=== PATIENT | female | born 1955 | race Caucasian/White ===

== ENCOUNTER 2017-03-06 07:13 | Inpatient (IN) ==
[2017-03-03 14:45] LABS: Basophils # (Auto) 0 K/mcL (0.0-0.3); Basophils % (Auto) 0.4 % (0.0-2.0); Eosinophils # (Auto) 0.2 K/mcL (0.0-0.7); Eosinophils % (Auto) 2.6 % (0.0-7.0); Granulocytes % (Auto) 57.4 % (38.0-78.0); Lymphocytes # (Auto) 2.1 K/mcL (1.5-4.8); Lymphocytes % (Auto) 32.4 % (15.5-49.0); Mean Cell Volume 82.7 fL (80.0-100.0); Mean Corpuscular HGB Conc 34.6 g/dL (31.0-36.0); Mean Corpuscular Hemoglobin 28.7 pg (26.0-34.0); Monocytes # (Auto) 0.5 K/mcL (0.1-0.9); Monocytes % (Auto) 7.2 % (1.0-12.0); Platelet Count 302 K/mcL (140-440); RBC 4.39 M/mcL (4.00-5.20); Red Cell Distribution Width 14.1 % (11.5-14.5)
[2017-03-03 15:00] LABS: Blood Urea Nitrogen 13 mg/dl (8-23)
[2017-03-03 16:12] LABS: Appearance,Urine CLEAR; Bilirubin,Urine NEG (NEG); Color,Urine YELLOW; Glucose,Urine (UA) NEGATIVE (NEG); Leukocyte Esterase,Urine NEG /uL (NEG); Nitrate,Urine NEG (NEG); Protein,Urine NEG (NEG); Specific Gravity,Urine 1.012 (1.000-1.035); Urine Blood NEG mg/dL (<0.03); Urobilinogen,Urine NEG (NEG)
[~2017-03-06 07:13] MED LIST: ACETAMINOPHEN 500 MG TABLET PO SCH; KETOROLAC 30 MG, ROPIVACAINE HCL/PF 49.5 ML, EPINEPHrine 0.5 MG, 0.9 % SODIUM CHLORIDE ... IJ ONE; PREGABALIN 75 MG CAPSULE PO SCH; ceFAZolin 1 GM VIAL IV SCH; oxyCODONE 10 MG TAB.ER.12H PO SCH
[2017-03-06] MEDS ORDERED: ONDANSETRON 4 MG/2 ML VIAL IV ONE (10:45)
[2017-03-06] MEDS ORDERED: DEXAMETHASONE 10 MG/ML VIAL IV ONE (10:45)
[2017-03-06] MEDS ORDERED: LIDOCAINE HCL/PF 100 MG/5 ML SYRINGE IV ONE (10:45)
[2017-03-06] MEDS ORDERED: ePHEDrine 50 MG/ML AMPUL IV ONE (10:45)
[2017-03-06] MEDS ORDERED: GLYCOPYRROLATE 0.2 MG/ML VIAL IV ONE (10:45)
[2017-03-06] MEDS ORDERED: HETASTARCH 6% 500 ML BAG IV ONE (10:45)
[2017-03-06] MEDS ORDERED: PROPOFOL 200 MG/20 ML VIAL IV ONE (10:45)
[2017-03-06] MEDS ORDERED: PHENYLEPHRINE 10 MG/ML VIAL IV ONE (10:45)
[2017-03-06] MEDS ORDERED: ROPIVACAINE HCL/PF 30 ML VIAL IJ ONE (10:45)
[2017-03-06] MEDS ORDERED: MIDAZOLAM 5 MG/5 ML VIAL IV ONE (10:45)
[2017-03-06] MEDS ORDERED: TRANEXAMIC ACID 1,000 MG/10 ML VIAL IV ONE ×2 (10:45→12:19)
[2017-03-06] MEDS ORDERED: GENTAMICIN SULFATE 800 MG/20 ML VIAL IR ONE (11:20)
[2017-03-06] MEDS ORDERED: diphenhydrAMINE 50 MG/ML VIAL IV PRN (11:57)
[2017-03-06] MEDS ORDERED: IPRATROPIUM/ALBUTEROL 3 ML AMPUL.NEB NEB PRN (11:57)
[2017-03-06] MEDS ORDERED: BENZOCAINE/MENTHOL 1 LOZENGE PO PRN ×2 (11:57→12:19)
[2017-03-06] MEDS ORDERED: METHOCARBAMOL 1,000 MG/10 ML VIAL IV PRN (11:57)
[2017-03-06] MEDS ORDERED: PROMETHAZINE 25 MG/ML VIAL IV PRN (11:57)
[2017-03-06] MEDS ORDERED: ONDANSETRON 4 MG/2 ML VIAL IV PRN ×2 (11:57→12:19)
[2017-03-06] MEDS ORDERED: FLUMAZENIL 0.1 MG/ML ML IV PRN (11:57)
[2017-03-06] MEDS ORDERED: fentaNYL 100 MCG/2 ML VIAL IV PRN (11:57)
[2017-03-06] MEDS ORDERED: METOCLOPRAMIDE 10 MG/2 ML VIAL IV PRN (11:57)
[2017-03-06] MEDS ORDERED: MEPERIDINE 50 MG/ML SYRINGE IM PRN (11:57)
[2017-03-06] MEDS ORDERED: LACTATED RINGERS 250 ML IV PRN (11:57)
[2017-03-06] MEDS ORDERED: ePHEDrine 50 MG/ML AMPUL IV PRN (11:57)
[2017-03-06] MEDS ORDERED: NALOXONE HCL 0.4 MG/ML VIAL IV PRN (11:57)
[2017-03-06] MEDS ORDERED: PROMETHAZINE 25 MG/ML VIAL IM PRN (11:57)
[2017-03-06] MEDS ORDERED: MEPERIDINE 25 MG/ML SYRINGE IV PRN (11:57)
[2017-03-06] MEDS ORDERED: LACTATED RINGERS 1,000 ML IV SCH (12:00)
[2017-03-06] MEDS ORDERED: FLEETS ADULT ENEMA PR PRN (12:19)
[2017-03-06] MEDS ORDERED: POLYETHYLENE GLYCOL 3350 17 GM PACKET PO PRN (12:19)
[2017-03-06] MEDS ORDERED: TEMAZEPAM 15 MG CAPSULE PO PRN (12:19)
[2017-03-06] MEDS ORDERED: BISACODYL 10 MG SUPP.RECT PR PRN (12:19)
[2017-03-06] MEDS ORDERED: ACETAMINOPHEN 325 MG TABLET PO PRN (12:19)
--- NOTE | 2017-03-06 12:19 | Brief Operative Note ---
Date of procedure: 03/06/17 Pre-op diagnosis: right knee severe djd Post-op diagnosis: same Procedure: right knee tka with colette robot Grafts/Implants: Yes Anesthesia: GETA Findings: djd in all three compartments Surgeon: Grant Gaming Job Setter Honing: Nathen Cottrell Estimated blood loss (cc): 20 Tourniquet Time (Minutes): 60 Specimens Removed/Pathology: none sent Condition: stable Disposition: PACU
[2017-03-06] MEDS ORDERED: DICYCLOMINE 10 MG CAPSULE PO PRN (12:26)
[2017-03-06] MEDS ORDERED: IPRATROPIUM BROMIDE 1 PUFF INHALER INH PRN (12:26)
[2017-03-06] MEDS ORDERED: HYDROcodone/APAP 5/325MG TABLET PO PRN (12:26)
[2017-03-06] MEDS ORDERED: BENZONATATE 100 MG CAPSULE PO PRN (12:26)
[2017-03-06] MEDS ORDERED: METHOCARBAMOL 500 MG TABLET PO PRN (12:26)
[2017-03-06] MEDS: 0.45 % SODIUM CHLORIDE 1,000 ML IV SCH ×2 (13:22→22:22)
--- NOTE | 2017-03-06 13:53 | Discharge Summary ---
Ortho Discharge - TKA - Patient Instructions Diet: Regular Diet Activity: activity as tolerated, weight bearing as tolerated Total Knee Protocol: For Total Knee: Start ROM LEVI with stationary bike or rocking chair. Work on gaining full extension of knee. Posterior dislocation precautions provided. Hip abductor strengthening and gait training instructions provided. Apply Cryocuff as instructed. Dressing Care: Aquacel Ag - leave on for 5 days - Follow Up Plan Follow Up Appointments: Grant Gaming MD [Physician] - 03/19/17 8:50 am Disposition: Home, Self-Care Prognosis: Good Rehab Potential: Good I certify that the patient requires SNF services: No Overall status at discharge: patient is progressing back to baseline - Orders For Discharge Additional Discharge Orders: Physical Therapy at Discharge - TKA Location: Determined By Patient Toilet Riser Discharge Order Location: Determined By Patient Walker Location: Determined By Patient
--- NOTE | 2017-03-06 13:57 | XRay Report ---
CLINICAL INFORMATION: Reason for Exam:Post-Op Total Knee COMPARISON: Preoperative film 11/13/2016 FINDINGS: Total knee prostheses is anatomically aligned. No osseous abnormality. Soft tissue swelling seen as expected IMPRESSION: Negative Interpreted and Authenticated by: Werner Rojas 03/06/17
[2017-03-06] MEDS: 0.9 % SODIUM CHLORIDE 10 ML SYRINGE IV SCH ×2 (14:52→21:23)
[2017-03-06] MEDS: KETOROLAC 15 MG/ML VIAL IV SCH ×2 (17:55→23:25)
[2017-03-06] MEDS: ceFAZolin 1 GM VIAL IV SCH (19:07)
[2017-03-06] MEDS: oxyCODONE/APAP 5/325MG TABLET PO PRN ×2 (19:13→23:26)
[2017-03-06] MEDS: QUEtiapine 25 MG TABLET PO SCH (20:36)
[2017-03-06] MEDS: PREGABALIN 75 MG CAPSULE PO SCH (20:36)
[2017-03-06] MEDS: CELECOXIB 200 MG CAPSULE PO SCH (20:36)
[2017-03-06] MEDS: DOCUSATE SODIUM 100 MG CAPSULE PO SCH (20:36)
[2017-03-06] MEDS: MEMANTINE 10 MG TABLET PO SCH (20:36)
[2017-03-06] MEDS: SENNOSIDES 1 TABLET PO SCH (20:36)
[2017-03-06] MEDS: DULoxetine 30 MG CAPSULE PO SCH (20:37)
[2017-03-06] MEDS: ASPIRIN 325 MG ENTERIC COATED TABLET PO SCH (20:41)
[2017-03-06] MEDS: SIMVASTATIN 20 MG TABLET PO SCH (21:33)
[2017-03-07] MEDS: ceFAZolin 1 GM VIAL IV SCH (02:11)
[2017-03-07] MEDS: oxyCODONE/APAP 5/325MG TABLET PO PRN ×2 (03:34→07:45)
[2017-03-07] MEDS: KETOROLAC 15 MG/ML VIAL IV SCH ×3 (05:15→18:08)
[2017-03-07] MEDS: 0.9 % SODIUM CHLORIDE 10 ML SYRINGE IV SCH ×3 (05:15→22:56)
[2017-03-07] MEDS: OMEPRAZOLE 20 MG CAPSULE PO SCH ×2 (06:41→07:29)
[2017-03-07] MEDS: LEVOTHYROXINE 88 MCG TABLET PO SCH (07:29)
[2017-03-07] MEDS: POTASSIUM CHLORIDE 20 MEQ TABLET PO SCH (07:45)
[2017-03-07] MEDS: metFORMIN 500 MG TAB.XL.24H PO SCH (07:45)
[2017-03-07] MEDS: 0.45 % SODIUM CHLORIDE 1,000 ML IV SCH ×2 (08:50→22:58)
[2017-03-07] MEDS ORDERED: diphenhydrAMINE 25 MG CAPSULE PO ONE (09:23)
[2017-03-07] MEDS: ASPIRIN 325 MG ENTERIC COATED TABLET PO SCH ×2 (09:43→21:33)
[2017-03-07] MEDS: MEMANTINE 10 MG TABLET PO SCH ×2 (09:43→21:33)
[2017-03-07] MEDS: PREGABALIN 75 MG CAPSULE PO SCH ×2 (09:43→21:33)
[2017-03-07] MEDS: LOSARTAN 25 MG TABLET PO SCH (09:43)
[2017-03-07] MEDS: VITAMIN B COMPLEX 1 CAPSULE PO SCH (09:43)
[2017-03-07] MEDS: HYDROCHLOROTHIAZIDE 25 MG TABLET PO SCH (09:43)
[2017-03-07] MEDS: CELECOXIB 200 MG CAPSULE PO SCH ×2 (09:44→21:33)
[2017-03-07] MEDS: DOCUSATE SODIUM 100 MG CAPSULE PO SCH ×2 (09:44→21:33)
[2017-03-07] MEDS: FLUTICASONE PROPIONATE SPRAY.NAS NS SCH (09:45)
[2017-03-07] MEDS: SELENIUM 100 MCG PO SCH (09:46)
--- NOTE | 2017-03-07 09:59 | Orthopedic Progress Note ---
Subjective Patient information: Note initiated : 03/07/17 at 9:57 am Service Date, if different from initiated Date: [] Patient: Ayah Coles 61 y/o F admitted on 03/06/17 for Right Medial Ole Partial Knee. Chief Complaint: [] Interval history: Patient is in quite a bit of pain this morning. She would like to try to increase pain medicine and if this works possibly go home today. She required IM morphine overnight for pain. She denies any acute symptoms such as LOPEZ, SOB, CP, numbness/tingling, or any other acute symptoms. Objective Vital signs: Vital Signs Temp Pulse Pulse Resp BP Pulse Ox 03/07/17 06:55 98.4 F 16 118/62 93 03/07/17 04:00 98.0 F 72 20 134/63 97 03/06/17 23:45 98.4 F 90 18 109/55 94 03/06/17 19:45 94 03/06/17 19:42 97.0 F 90 18 138/64 94 03/06/17 16:20 99 03/06/17 15:40 178/76 100 03/06/17 15:10 177/60 99 03/06/17 14:40 194/81 100 03/06/17 14:25 183/79 100 03/06/17 14:10 100 03/06/17 13:55 97.3 F 16 178/80 93 03/06/17 13:34 65 14 182/80 99 03/06/17 13:20 98.4 F 67 13 176/78 98 03/06/17 13:05 69 13 166/72 98 03/06/17 12:48 98.3 F 73 13 163/73 92 Intake and Output 03/06/17 03/07/17 03/07/17 21:59 05:59 13:59 Intake Total 1540 / 1540 2540 / 2540 240 / 240 Output Total 1400 / 1400 600 / 600 275 / 275 Balance 140 / 140 1940 / 1940 -35 / -35 Intake: IV 900 / 900 Sodium Chloride 0.45% 1, 900 / 900 000 ml @ 100 mls/hr IV . Q10H [facility] Rx#:[id number] Oral 1540 / 1540 1640 / 1640 240 / 240 Output: Urine Catheter Amount 1000 / 1000 Void Amount 400 / 400 600 / 600 275 / 275 Other: Meal Dinner sandwich & fruit cup Breakfast Percent of Meal Consumed 100% 100% 100% Feeding Ability Independent # Voids 1 Weight 180 lb 14.4 oz Intake & Output: Intake & Output 03/06/17 03/07/17 03/07/17 21:59 05:59 13:59 Intake Total 1540 / 1540 2540 / 2540 240 / 240 Output Total 1400 / 1400 600 / 600 275 / 275 Balance 140 / 140 1940 / 1940 -35 / -35 Weight 180 lb 14.4 oz Intake: IV 900 / 900 Sodium Chloride 0.45% 1, 900 / 900 000 ml @ 100 mls/hr IV . Q10H [facility] Rx#:[id number] Oral 1540 / 1540 1640 / 1640 240 / 240 Output: Urine Catheter Amount 1000 / 1000 Void Amount 400 / 400 600 / 600 275 / 275 Other: Meal Dinner sandwich & fruit cup Breakfast Percent of Meal Consumed 100% 100% 100% Feeding Ability Independent # Voids 1 Incision: Yes healing Dressing: Yes clean, Yes dry, Yes intact Weight bearing status: as tolerated Extremities exam IM: Yes Foot pink and warm, Yes neurovascular intact - Labs CBC & BMP: 03/07/17 05:23 03/03/17 13:23 Labs: Orthopedic Labs 03/03/17 13:23 PT 13.1 INR 1.0 APTT 30 03/07/17 03/03/17 05:23 13:23 Hgb 12.6 Hct 26.8 L 36.3 Assessment and Plan (1) Status post total right knee replacement Patient has a good amount of pain. She is doing well and walking but unable to control her pain on oral medications. I will switch her to oxycodone 10 mg 1-2 tabs every 4-6 hours prn pain and if this works she willl go home today and otherwise be discharged tomorrow. Status: Acute
[2017-03-07] MEDS ORDERED: diphenhydrAMINE 25 MG CAPSULE PO PRN (11:30)
[2017-03-07] MEDS: oxyCODONE/APAP 10/325MG TABLET PO PRN ×2 (11:51→18:09)
[2017-03-07] MEDS: MAGNESIUM HYDROXIDE 30 ML ORAL.SUSP PO PRN ×2 (13:41→19:13)
[2017-03-07] MEDS: SENNOSIDES 1 TABLET PO SCH (21:32)
[2017-03-07] MEDS: SIMVASTATIN 20 MG TABLET PO SCH (21:33)
[2017-03-07] MEDS: DULoxetine 30 MG CAPSULE PO SCH (21:34)
[2017-03-07] MEDS: QUEtiapine 25 MG TABLET PO SCH (21:34)
[2017-03-08] MEDS: KETOROLAC 15 MG/ML VIAL IV SCH ×3 (00:32→11:15)
[2017-03-08] MEDS: 0.9 % SODIUM CHLORIDE 10 ML SYRINGE IV SCH (05:51)
[2017-03-08] MEDS: LEVOTHYROXINE 88 MCG TABLET PO SCH (07:46)
[2017-03-08] MEDS: OMEPRAZOLE 20 MG CAPSULE PO SCH (07:46)
[2017-03-08] MEDS: CELECOXIB 200 MG CAPSULE PO SCH (08:56)
[2017-03-08] MEDS: LOSARTAN 25 MG TABLET PO SCH (08:56)
[2017-03-08] MEDS: DOCUSATE SODIUM 100 MG CAPSULE PO SCH (08:56)
[2017-03-08] MEDS: metFORMIN 500 MG TAB.XL.24H PO SCH (08:56)
[2017-03-08] MEDS: POTASSIUM CHLORIDE 20 MEQ TABLET PO SCH (08:56)
[2017-03-08] MEDS: ASPIRIN 325 MG ENTERIC COATED TABLET PO SCH (08:57)
[2017-03-08] MEDS: VITAMIN B COMPLEX 1 CAPSULE PO SCH (08:57)
[2017-03-08] MEDS: MEMANTINE 10 MG TABLET PO SCH (08:57)
[2017-03-08] MEDS: HYDROCHLOROTHIAZIDE 25 MG TABLET PO SCH (08:57)
[2017-03-08] MEDS: PREGABALIN 75 MG CAPSULE PO SCH (08:57)
[2017-03-08] MEDS: FLUTICASONE PROPIONATE SPRAY.NAS NS SCH (09:02)
[2017-03-08] MEDS: SELENIUM 100 MCG PO SCH (09:02)
[2017-03-08] MEDS ORDERED: CALCIUM CARBONATE 500 MG TAB.CHEW CHEWED ONE (11:15)
== END 2017-03-08 12:45 | disposition home or self-care (01) | DRG 470 ==
LOC: SUR 07:13 → MEDSUR 13:40
PROVIDERS: ADMIT Orthopaedic Surgery; ATTEND Orthopaedic Surgery